=== PATIENT | male | born 1960 | race Caucasian/White ===

== ENCOUNTER → 2018-02-11 | Outpatient (REF) | payer OTHER ==
[2018-02-12 12:08] LABS: ALBUMIN 4.3 GM/DL (3.2-5.2); ALBUMIN/GLOBULIN RATIO 1.43 (1.00-1.93); ALKALINE PHOSPHATASE 62 U/L (45-117); ALT/SGPT 40 U/L (12-78); ANION GAP 6 MEQ/L (8-16); AST/SGOT 27 U/L (7-37); BILIRUBIN,TOTAL 0.4 MG/DL (0.2-1.0); BLOOD UREA NITROGEN 19 MG/DL (7-18); CALCIUM LEVEL 9.3 MG/DL (8.5-10.1); CARBON DIOXIDE LEVEL 29 MEQ/L (21-32); CHLORIDE LEVEL 109 MEQ/L (98-107); CHOLESTEROL LEVEL 152 MG/DL (<200); CHOLESTEROL RISK RATIO 2.666 (<5); CREATININE FOR GFR 0.98 MG/DL (0.70-1.30); GLOMERULAR FILTRATION RATE > 60.0 (>56); GLUCOSE, FASTING 93 MG/DL (70-100); HDL CHOLESTEROL 57 MG/DL (>40); LDL CHOLESTEROL 63.4 MG/DL (<100); NON-HDL-C 95 MG/DL; SODIUM LEVEL 144 MEQ/L (136-145); TOTAL PROTEIN 7.3 GM/DL (6.4-8.2); TRIGLYCERIDES LEVEL 158 MG/DL (<150)
[2018-02-12 12:48] LABS: ESTIMATED AVERAGE GLUCOSE 111 MG/DL (60-110); HEMOGLOBIN A1c 5.5 %
== END ==
LOC: M SFHCCLAY 14:26
DX: R73.01 Impaired fasting glucose (principal); E78.2 Mixed hyperlipidemia
CPT/HCPCS: 80053

== ENCOUNTER → 2018-11-02 | Outpatient (REF) | payer OTHER ==
[2018-11-02 16:42] LABS: ALBUMIN 4.1 GM/DL (3.2-5.2); ALT/SGPT 39 U/L (12-78); BILIRUBIN,TOTAL 0.6 MG/DL (0.2-1.0); BLOOD UREA NITROGEN 20 MG/DL (7-18); CARBON DIOXIDE LEVEL 28 MEQ/L (21-32); CHLORIDE LEVEL 107 MEQ/L (98-107); CHOLESTEROL LEVEL 176 MG/DL (<200); CREATININE FOR GFR 0.95 MG/DL (0.70-1.30); GLOMERULAR FILTRATION RATE > 60.0 (>56); GLUCOSE, FASTING 84 MG/DL (70-100); HDL CHOLESTEROL 55 MG/DL (>40); LDL CHOLESTEROL 100 MG/DL (<100); NON-HDL-C 121 MG/DL; POTASSIUM SERUM 4.8 MEQ/L (3.5-5.1); SODIUM LEVEL 141 MEQ/L (136-145); TOTAL PROTEIN 7.2 GM/DL (6.4-8.2); TRIGLYCERIDES LEVEL 107 MG/DL (<150)
[2018-11-02 16:54] LABS: HEMOGLOBIN A1c 5.6 %
== END ==
LOC: M SFHCCLAY 09:54
PROVIDERS: ATTEND Family Medicine
DX: R73.01 Impaired fasting glucose (principal); E78.2 Mixed hyperlipidemia; Z12.5 Encounter for screening for malignant neoplasm of prostate

== ENCOUNTER 2019-07-14 08:11 | Inpatient (IN) | payer OTHER ==
[~2019-07-14] VITALS: Ht 170.2 cm; Wt 86.5 kg
[2019-07-14] MEDS ORDERED: [UNRECOGNIZED DRUG - OTHER] PO (08:18)
[2019-07-14] MEDS ORDERED: FLON1SPR NARES (08:18)
[2019-07-14 08:44] LABS: HEMATOCRIT 48.5 % (42.0-52.0); HEMOGLOBIN 16.3 g/dl (13.5-17.5); MEAN CORPUSCULAR HEMOGLOBIN 31.4 pg (27.0-33.0); MEAN CORPUSCULAR HGB CONC 33.6 g/dl (32.0-36.5); MEAN CORPUSCULAR VOLUME 93.4 fl (80.0-96.0); PLATELET COUNT, AUTOMATED 277 10^3/uL (150-450); RED BLOOD COUNT 5.19 10^6/uL (4.30-6.10); WHITE BLOOD COUNT 5.3 10^3/uL (4.0-10.0)
[2019-07-14 09:07] LABS: AMPHETAMINES LEVEL URINE NEGATIVE (NEGATIVE); BARBITURATES URINE NEGATIVE (NEGATIVE); BENZODIAZEPINES URINE NEGATIVE (NEGATIVE); CANNABINOIDS URINE NEGATIVE (NEGATIVE); METHADONE URINE NEGATIVE (NEGATIVE); OPIATES URINE NEGATIVE (NEGATIVE); PHENCYCLIDINE URINE NEGATIVE (NEGATIVE)
[2019-07-14 09:24] LABS: ACETAMINOPHEN LEVEL < 2.0 UG/ML (10.0-30.0); ALBUMIN 4.2 GM/DL (3.2-5.2); ALT/SGPT 38 U/L (12-78); BILIRUBIN,DIRECT 0.1 MG/DL (0.0-0.2); BILIRUBIN,TOTAL 0.4 MG/DL (0.2-1.0); BLOOD UREA NITROGEN 18 MG/DL (7-18); CALCIUM LEVEL 9.6 MG/DL (8.5-10.1); CARBON DIOXIDE LEVEL 29 MEQ/L (21-32); CHLORIDE LEVEL 104 MEQ/L (98-107); ETHYL ALCOHOL (ETHANOL) 0.003 % (0.000-0.010); GLOMERULAR FILTRATION RATE > 60.0 (>56); GLUCOSE, FASTING 113 MG/DL (70-100); POTASSIUM SERUM 4.1 MEQ/L (3.5-5.1); SALICYLATE LEVEL < 1.7 MG/DL (5.0-30.0); SODIUM LEVEL 140 MEQ/L (136-145); TOTAL PROTEIN 7.2 GM/DL (6.4-8.2)
[2019-07-14 10:19] LABS: COCAINE METABOLITE URINE NEGATIVE (NEGATIVE)
[2019-07-14] MEDS ORDERED: MOM 30ML SUSPENSION UDC PO PRN (12:30)
[2019-07-14] MEDS ORDERED: ACETAMINOPHEN TAB 650MG DOSE (2X325MG) PO PRN (12:30)
[2019-07-14] MEDS ORDERED: traZODone 50 MG TAB PO PRN (12:30)
[2019-07-14] MEDS ORDERED: MAALOX 30 ML SUSP *UDC PO PRN (12:30)
[2019-07-14] MEDS ORDERED: [UNRECOGNIZED DRUG - OTHER] PO (13:50)
[2019-07-14 14:07] VITALS: BP 157/79
--- NOTE | 2019-07-14 18:12 | HPE ---
DATE OF ADMISSION: 07/14/2019 PRIMARY CARE PROVIDER: Dr. Gaurav Cardenas DO ATTENDING PHYSICIAN: Dr. Yaz Lopez This is a medical evaluation of Sergey Obrien, a 58-year-old, admitted to inpatient mental health unit. His medical history is significant only for some chronic allergies, which are relatively minor, history of prediabetes and borderline hyperlipidemia, just treated through dietary therapy. He has a history of dyspepsia/gastroesophageal reflux disease (GERD). His most recent routine labs were in October, and they were satisfactory. His most recent primary care visit was 05/03/2019 and that note was reviewed as part of this assessment. HOME MEDICATIONS: Some ofdn-ips-mulycra Curcumin nd ginseng. He uses Astelin nasal spray as needed. ALLERGIES: None known. SURGICAL HISTORY: Bilateral carpal tunnel surgery, colonoscopy 2009, 2012, left varicose vein procedure 2013. FAMILY HISTORY: Father of colon cancer at 59, mother at 83 of heart disease. She was hypertensive. SOCIAL HISTORY: Quit smoking many years ago. Low to moderate alcohol intake. 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 REVIEW OF SYSTEMS: No chest pain, palpitations, (dictation cut off). PHYSICAL EXAMINATION: Vital Signs: As listed. Alert, conversant, no distress, answers are appropriate and goal directed. Pupils equal, round, reactive to light. Tympanic membranes (TMs) normal. Pharynx benign. Neck: No masses. Lungs: Clear. Heart: Regular without murmur. Abdomen: Soft, nontender, no masses. No peripheral edema. Exam nonfocal. Normal strength, reflexes, sensation and gait. IMPRESSION: 1. Patient is medically stable. There are no significant medical problems that require ongoing medical care. If any develop, please feel free to notify the hospitalist service. 2. Minimally elevated thyroid-stimulating hormone (TSH). The patient's TSH is minimally elevated at 4.7. This could be repeated as an outpatient. Subclinical hypothyroidism has been shown not to respond to levothyroxine replacement. Until the patient develops amanda hypothyroidism, I would not recommend any treatment. I would let his primary care provider evaluate this further as an outpatient.
[2019-07-14] MEDS: IBUPROFEN 600 MG TAB PO PRN (20:04)
[2019-07-15 06:03] VITALS: BP 130/67
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
[2019-07-15 18:19] VITALS: BP 160/98
[2019-07-15] MEDS: IBUPROFEN 600 MG TAB PO PRN (20:26)
[2019-07-16 06:35] VITALS: BP 138/77
--- NOTE | 2019-07-16 13:40 | MHIPNPDOC ---
[facility] Progress Note Progress Note Inpatient Progress Note Sergey Obrien MRN: N/A Date of : N/A Date of Service: 07/16/2019 History of Present Illness The patient, a 58-year-old man, with a history of some adjustment, presents after reportedly making statements that he had wanted to kill himself after stressful interactions with his as well as difficulty with restructuring his kitchen. He has a history of owning many weapons at home. Interval History The patient is met with today. He has not been tried on any medications, but reports that he is feeling better. He describes talking about his problems and working through the various books is fairly helpful for him. He describes that he was quite happy with the experience. No major behavioral problems. Reports improving mood, interest, energy and fatigue. Review Of Systems General: Denies fever or weight changes Cardiovascular: Denies Chest pain or palpitations GI: Denies Nausea, vomiting, or bowel changes Respiratory: Denies shortness of breath or cough Neuro: Denies dizziness, tremors Derm: Denies any rashes or pruritus : Denies any dysuria or urinary problems MSK: Denies any muscle tightness or stiffness HEENT: Denies any vision changes or headaches Heme/Lymph: Denies any bruising or bleeding Endo: Denies any cold/heat intolerance or water intake changes Psychotherapy None on this visit. Vital Signs Reviewed. Mental Status Examination General: Well dressed with good hygiene Speech: Spontaneous and fluid Thought processes: Linear and logical MSK: Smooth and coordinated gait, no signs of tremors or involuntary orofacial movements Thought content: Future orientated Abstract reasoning, and computation: Intact Description of associations: Intact Description of abnormal or psychotic thoughts: Denies any suicidal or homicidal ideation. Denies any auditory or visual hallucinations. Does not appear to be responding to internal stimuli. Does not appear to be endorsing any bizarre or paranoid ideation. Judgment: fair Insight: fair Orientation: Alert and orientated 3 Cognition: Grossly normal Recent and remote memory: Intact Attention span and concentration: Intact Fund of knowledge: Adequate Mood: "okay" Affect: Euthymic with a full range Diagnoses Unspecified depressive disorder. Assessment and Plan Continue with current treatment plan. Disposition Discharge Thursday per Dr. Matos. Time Spent 20 minutes [id number]. Thursday Vital Signs Vital Signs Date Time Temp Pulse Resp B/P (MAP) Pulse Ox O2 Delivery O2 Flow Rate FiO2 07/16/19 06:35 99.2 60 18 138/77 (97) 07/14/19 14:07 100 07/14/19 08:14 Room Air Current Medications Current Medications Medications (Trade) Dose Ordered Sig/Sandee Route PRN Reason Start Time Stop Time Status Last Admin Dose Admin Acetaminophen (Tylenol Tab) 650 mg Q6HP PRN PO HEADACHE or DISCOMFORT 07/14/19 12:30 Cancel Al Hydrox/Mg Hydrox/Simethicone (Mylanta) 30 ml Q4HP PRN PO HEARTBURN/INDIGESTION 07/14/19 12:30 Home Med (Med Rec Complete!) ASDIRECTED XX 07/14/19 14:00 07/14/19 13:53 DC Ibuprofen (Advil) 600 mg Q6HP PRN PO DISCOMFORT 07/14/19 19:45 07/15/19 20:26 Magnesium Hydroxide (Milk Of Magnesia) 30 ml DAILYPRN PRN PO CONSTIPATION 07/14/19 12:30 Trazodone HCl (Desyrel) 50 mg QHSP PRN PO INSOMNIA 07/14/19 12:30 Allergies Coded Allergies: Dust (Verified Allergy, Unknown, 07/14/19) ENVIROMENTAL (Verified Allergy, Unknown, 07/14/19) CAMILLA FLORES DO Jul 16, 2019 13:40
[2019-07-16 15:53] VITALS: BP 140/85
[2019-07-17 06:39] VITALS: BP 122/69
--- NOTE | 2019-07-17 13:00 | MHIPNPDOC ---
[facility] Progress Note Progress Note Inpatient Progress Note Sergey Obrien MRN: N/A Date of : N/A Date of Service: 07/17/2019 History of Present Illness The patient, a 58-year-old man, with a history of some adjustment, presents after reportedly making statements that he had wanted to kill himself after stressful interactions with his as well as difficulty with restructuring his kitchen. He has a history of owning many weapons at home. Interval History The patient is met with today. He reports he is doing well, that he's helping other patients. Reports that his mood is good. No difficulties with energy, concentration, focus, or motivation. He has been attending groups regularly. Engaged and doing well on the unit. Review Of Systems General: Denies fever or weight changes Cardiovascular: Denies Chest pain or palpitations GI: Denies Nausea, vomiting, or bowel changes Respiratory: Denies shortness of breath or cough Neuro: Denies dizziness, tremors Derm: Denies any rashes or pruritus : Denies any dysuria or urinary problems MSK: Denies any muscle tightness or stiffness HEENT: Denies any vision changes or headaches Heme/Lymph: Denies any bruising or bleeding Endo: Denies any cold/heat intolerance or water intake changes Psychotherapy None on this visit. Vital Signs Reviewed. Mental Status Examination General: Well dressed with good hygiene Speech: Spontaneous and fluid Thought processes: Linear and logical MSK: Smooth and coordinated gait, no signs of tremors or involuntary orofacial movements Thought content: Future orientated Abstract reasoning, and computation: Intact Description of associations: Intact Description of abnormal or psychotic thoughts: Denies any suicidal or homicidal ideation. Denies any auditory or visual hallucinations. Does not appear to be responding to internal stimuli. Does not appear to be endorsing any bizarre or paranoid ideation. Judgment: fair Insight: fair Orientation: Alert and orientated 3 Cognition: Grossly normal Recent and remote memory: Intact Attention span and concentration: Intact Fund of knowledge: Adequate Mood: "okay" Affect: Euthymic with a full range Diagnoses Unspecified depressive disorder. Assessment and Plan Continue with current treatment plan. Disposition Discharge Thursday per Dr. Matos. Time Spent 20 minutes [id number]. Thursday Vital Signs Vital Signs Date Time Temp Pulse Resp B/P (MAP) Pulse Ox O2 Delivery O2 Flow Rate FiO2 07/17/19 06:39 98.3 67 18 122/69 (86) 07/14/19 14:07 100 07/14/19 08:14 Room Air Current Medications Current Medications Medications (Trade) Dose Ordered Sig/Sandee Route PRN Reason Start Time Stop Time Status Last Admin Dose Admin Acetaminophen (Tylenol Tab) 650 mg Q6HP PRN PO HEADACHE or DISCOMFORT 07/14/19 12:30 Cancel Al Hydrox/Mg Hydrox/Simethicone (Mylanta) 30 ml Q4HP PRN PO HEARTBURN/INDIGESTION 07/14/19 12:30 Home Med (Med Rec Complete!) ASDIRECTED XX 07/14/19 14:00 07/14/19 13:53 DC Ibuprofen (Advil) 600 mg Q6HP PRN PO DISCOMFORT 07/14/19 19:45 07/15/19 20:26 Magnesium Hydroxide (Milk Of Magnesia) 30 ml DAILYPRN PRN PO CONSTIPATION 07/14/19 12:30 Trazodone HCl (Desyrel) 50 mg QHSP PRN PO INSOMNIA 07/14/19 12:30 Allergies Coded Allergies: Dust (Verified Allergy, Unknown, 07/14/19) ENVIROMENTAL (Verified Allergy, Unknown, 07/14/19) CAMILLA FLORES DO Jul 17, 2019 13:00
[2019-07-17 15:40] VITALS: BP 135/85
[2019-07-18 06:41] VITALS: BP 127/73
--- NOTE | 2019-07-18 09:19 | MHDSPDOC ---
[facility] Discharge Summary Discharge Summary DATE OF ADMISSION: Jul 14, 2019 at 12:20 pm DATE OF DISCHARGE: Jul 18, 2019 DISCHARGE DIAGNOSES: Adjustment d/o with depression and anxiety REASON FOR ADMISSION:Patient is a 58 -year-old , male, who presented to the ED by police on for SI. Patients called the police because the pa tient was making suicidal statements about "putting a gun in his mouth." The patient states he is here for depression. He states several stressors in his home life. 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 He is overwhelmed with extra works around the house due to a sink leak and expressed frustration with getting little help from his and children. He is alone for the majority of his days and feels like he has lost his children to their cell phones. He expressed marital problems regarding his not helping around the house and hoarding. He reports eh feels judged at synagogue due to his discussing their marital problems with the other synagogue members. He has reportedly been feeling depressed for a year or more. He stated this morning he woke up and laid all of his money and credit cards on the table and told his , "I'm done. I can't take it anymore. You can have all of this, I just want to put a gun in my mouth." He reports he has no history of m ental health diagnosis but was prescribed depression medication years ago by his PCP, but only took it for a couple of months. Patient denies HI/AVH. He stated he had suicidal thoughts at the age of 16 due to growing up in a violent home life as a child but has no history of suicidal attempts. In the ED the patient denied SI at that time. He reported he would not hurt himself but throughout the encounter he did report that things were "bottling up" and if they don't change he will continue to threaten suicide. He reports not sleeping well and being more restless, but does have a good appetite. Although the patient did state he would be safe and not hurt himself if he were to go home, he repeatedly talked about putting a gun in his mouth, being home alone daily, and having guns in the home. Patient seen and reports there are a lot of things that are going on at home. He states, "I got up yesterday morning and with all of the things going on at home, and with is all bottling up, I said I wanted to put a gun in my mouth." He then discusses that he actually went to the gun cabinet and acted as though he was going to grab a gun which he states was enough to get his concerned. She then contacted police. He reports that he wasn't going to do anything with the g un, he was just trying to get some help and no one would listen to him. He says he constantly is asking for help around the house from his and his children and it takes him raising his voice for anyone to actually do something. He says his then feels like he is attacking her but he feels like if she would help the first time he asked he wouldn't need to raise his voice. He then also was upset because she has been sharing their marital problems at synagogue, and this makes him feel judged and uncomfortable. He feels like his kids are so into their cell phones and they never wanna help until he "throws a fit." which he states is him just raising his voice, not breaking things. He is also frustrated with his having a hard time throwing things away, and he really wants to clean things up around the house. He reports she hasn't gotten rid of things for 30 years and she refuses to throw things away that they no longer use. He reports it is all of these stressors bottling up that led to his admission here. He reports that he never felt suicidal or that he would ever hurt himself, but he thought it was the only way to get his family to listen. Today he feels "good, like I'm on vacation." He slept well last night, and his appetite has been good as well. The patient is very chatty and appears to benefit from talking through his stressors. Upset that his will be called to hide his guns for safety purposes b/c "I was planning on taking my kids hunting next weekend." Denies he believes he need an antidepressant but would like therapy outpatient as he find talking about his stressors very beneficial. Encouraged to attend groups while he's here as that are part of his treatment and will be beneficial for him. He denies SI/HI/AVH, he feels safe here. CONSULTANTS INVOLVED: none TREATMENT AND PROGRESS ON THE UNIT :Pt was admitted to [facility], seen for psychiatric assessment and declined to start any psychotropic medications in preference to trying outpatient therapy first as treatment for his mood. He was provided trazodone 500mg qhs prn insomnia. Pt found his medications beneficial and tolerated them well. He attended groups daily during his stay. His symptoms improved with treatment. On day of discharge he denied depression, anxiety, insomnia, SI/HI, hallucinations, delusions. Per d/c digital media planner, called and all of pt's guns removed from his home for safety. He was discharged home with follow-up at [facility]. He felt safe for discharge. DISCHARGE ASSESSMENT::Pt seen and states that his mood is "good" and is looking forward to going home today and being with his and kids. States he slept well last night. He is attending groups and finding them helpful. He denies depression, anxiety, insomnia, SI/HI, hallucinations, delusions. Pt feels safe to be discharged home with his MENTAL STATUS EXAMINATION ON DISCHARGE: General Appearance: well groomed, appears stated age, hospital scrubs/clothing Build: overweight Demeanor: average Eye Contact: average Activity: average Behavior: cooperative Speech: clear, reg/rate,rhythm,volume, non-spontaneous Mood: euthymic, full range Mood "good" Affect: full, appropriate, congruent Thought Process: logical/linear, intact Thought Content (Delusions): denies SI, HI, AVH Thought Content (Other): none reported Thought Content (Aggressive): none reported Perception (Hallucinations): none reported Perception (Other): none reported Cognition (Impairment of): none reported Cognition(Intelligence Est.): average Oriented: Awake, Alert, Oriented times three Insight: good Judgment: good MEDICATIONS ON DISCHARGE: none PLAN/FOLLOWUP ARRANGEMENTS: D/c home with follow-up at [facility]. The amount of time spent in the coordination of care for this patient was approximately 30 minutes. Vital Signs/I&Os Vital Signs Date Time Temp Pulse Resp B/P (MAP) Pulse Ox O2 Delivery O2 Flow Rate FiO2 07/18/19 06:41 98.3 54 12 127/73 (91) 07/14/19 14:07 100 07/14/19 08:14 Room Air Medications Scheduled [[cumin]] Unknown Strength , Unknown Dose PO DAILY, (Reported) Scheduled PRN Fluticasone Propionate (Flonase Allergy Relief) 9.9 Ml [place].susp, 2 SPRAY NARES DAILY PRN for NASAL CONGESTION, #9.9 (Reported) Allergies Coded Allergies: Dust (Verified Allergy, Unknown, 07/14/19) ENVIROMENTAL (Verified Allergy, Unknown, 07/14/19) HEMALATHA CAMP DO Jul 18, 2019 9:19 am
== END 2019-07-18 13:15 | disposition home or self-care (01) | DRG 882 ==
LOC: M ED 08:11 → M ED INP 12:20 → M PSY 13:49
PROVIDERS: ADMIT Psychiatry & Neurology Psychiatry; ATTEND Psychiatry & Neurology Psychiatry
DX: F43.23 Adjustment disorder with mixed anxiety and depressed mood (principal); R45.851 Suicidal ideations; E78.5 Hyperlipidemia, unspecified; K21.9 Gastro-esophageal reflux disease without esophagitis; R73.03 Prediabetes; J30.2 Other seasonal allergic rhinitis; Z91.09 Other allergy status, other than to drugs and biological substances; Z91.49 Other personal history of psychological trauma, not elsewhere classified; Z79.899 Other long term (current) drug therapy; Z63.0 Problems in relationship with spouse or partner; Z87.891 Personal history of nicotine dependence; Z81.1 Family history of alcohol abuse and dependence

== ENCOUNTER → 2019-11-03 | Outpatient (REF) | payer OTHER ==
[~2019-11-03] MED LIST: FLON1SPR NARES; [UNRECOGNIZED DRUG - OTHER] PO; [UNRECOGNIZED DRUG - OTHER] PO
[2019-11-03 16:31] LABS: ALT/SGPT 45 U/L (12-78); BILIRUBIN,TOTAL 0.5 MG/DL (0.2-1.0); BLOOD UREA NITROGEN 20 MG/DL (7-18); CARBON DIOXIDE LEVEL 27 MEQ/L (21-32); CHLORIDE LEVEL 107 MEQ/L (98-107); CHOLESTEROL LEVEL 227 MG/DL (<200); CHOLESTEROL RISK RATIO 3.603 (<5); GLOMERULAR FILTRATION RATE > 60.0 (>49); GLUCOSE, FASTING 90 MG/DL (70-100); HDL CHOLESTEROL 63 MG/DL (>40); LDL CHOLESTEROL 135 MG/DL (<100); NON-HDL-C 164 MG/DL; SODIUM LEVEL 139 MEQ/L (136-145); TOTAL PROTEIN 7.1 GM/DL (6.4-8.2); TRIGLYCERIDES LEVEL 144 MG/DL (<150)
[2019-11-03 16:46] LABS: HEMOGLOBIN A1c 5.8 %
== END ==
LOC: M SFHCCLAY 09:55
PROVIDERS: ATTEND Family Medicine
DX: R73.01 Impaired fasting glucose (principal); E78.2 Mixed hyperlipidemia

== ENCOUNTER → 2019-11-03 | Outpatient (CLI) | payer OTHER ==
--- NOTE | 2019-11-04 01:46 | REP ---
Clinical: Right knee pain Technique: AP, lateral, bilateral oblique and sunrise views. Findings: The osseous structures and joint spaces are intact and essentially age-appropriate. [place] view demonstrates sclerosis and subtle fraying along the anterior patellar margin which may reflect associated tendinopathy. No further significant arthritic changes are appreciated. There is no evidence for acute fracture or dislocation. No definite joint effusion is appreciated. Surrounding soft tissues are unremarkable. Impression: Relatively age-appropriate examination. Patellar tendinopathy cannot be excluded. Electronically Signed by Hilario Ram MD 11/04/2019 01:38 A
== END ==
LOC: M CLY 10:27
PROVIDERS: ATTEND Family Medicine
DX: M25.561 Pain in right knee (principal)

== ENCOUNTER → 2020-09-25 | Outpatient (CLI) | payer SELFPAY | LOC: M LABSMTC 14:18 | PROVIDERS: ATTEND Pediatrics | DX: Z11.59 Encounter for screening for other viral diseases (principal) ==

== ENCOUNTER → 2020-11-26 | Outpatient (REF) | payer OTHER ==
[2020-11-26 12:29] LABS: BASO % 0.8 % (0.0-1.0); EOS # 0.1 10^3/uL (0.0-0.5); EOS % 1.4 % (0.0-3.0); HEMATOCRIT 47.2 % (42.0-52.0); HEMOGLOBIN 15.2 g/dl (13.5-17.5); LYMPH # 1.1 10^3/uL (1.5-5.0); LYMPH % 28.9 % (24.0-44.0); MEAN CORPUSCULAR HEMOGLOBIN 29.9 pg (27.0-33.0); MEAN CORPUSCULAR HGB CONC 32.2 g/dl (32.0-36.5); MEAN CORPUSCULAR VOLUME 92.7 fl (80.0-96.0); MONO # 0.6 10^3/uL (0.0-0.8); MONO % 15.5 % (0.0-5.0); NEUTROPHILS % 53.1 % (36.0-66.0); PLATELET COUNT, AUTOMATED 251 10^3/uL (150-450); RED BLOOD COUNT 5.09 10^6/uL (4.30-6.10); WHITE BLOOD COUNT 3.7 10^3/uL (4.0-10.0)
[2020-11-26 13:49] LABS: ALBUMIN 3.8 GM/DL (3.2-5.2); ALT/SGPT 46 U/L (12-78); BILIRUBIN,TOTAL 0.6 MG/DL (0.2-1.0); BLOOD UREA NITROGEN 21 MG/DL (7-18); CALCIUM LEVEL 9.1 MG/DL (8.8-10.2); CARBON DIOXIDE LEVEL 30 MEQ/L (21-32); CHLORIDE LEVEL 104 MEQ/L (98-107); CHOLESTEROL LEVEL 187 MG/DL (<200); CHOLESTEROL RISK RATIO 2.833 (<5); CREATININE FOR GFR 0.84 MG/DL (0.70-1.30); GLOMERULAR FILTRATION RATE > 60.0 (>49); GLUCOSE, FASTING 116 MG/DL (70-100); HDL CHOLESTEROL 66 MG/DL (>40); LDL CHOLESTEROL 108 MG/DL (<100); NON-HDL-C 121 MG/DL; POTASSIUM SERUM 4.5 MEQ/L (3.5-5.1); SODIUM LEVEL 139 MEQ/L (136-145); TOTAL PROTEIN 6.7 GM/DL (6.4-8.2); TRIGLYCERIDES LEVEL 64 MG/DL (<150)
[2020-11-26 17:05] LABS: HEMOGLOBIN A1c 5.5 %
== END ==
LOC: M SFHCCLAY 07:54
PROVIDERS: ATTEND Family Medicine
DX: R73.01 Impaired fasting glucose (principal); E78.2 Mixed hyperlipidemia

== ENCOUNTER → 2022-02-27 | Outpatient (REF) | payer OTHER ==
[2022-02-27 11:48] LABS: BASO # 0.1 10^3/uL (0.0-0.2); BASO % 0.8 % (0.0-1.0); EOS # 0.1 10^3/uL (0.0-0.5); HEMATOCRIT 48.9 % (42.0-52.0); HEMOGLOBIN 16.4 g/dl (13.5-17.5); LYMPH # 1.1 10^3/uL (1.5-5.0); MEAN CORPUSCULAR HEMOGLOBIN 30.9 pg (27.0-33.0); MEAN CORPUSCULAR HGB CONC 33.5 g/dl (32.0-36.5); MEAN CORPUSCULAR VOLUME 92.3 fl (80.0-96.0); MONO % 16.4 % (2.0-8.0); NEUTROPHILS # 3.8 10^3/uL (1.5-8.5); NEUTROPHILS % 62.5 % (36.0-66.0); PLATELET COUNT, AUTOMATED 269 10^3/uL (150-450)
[2022-02-27 12:08] LABS: ALBUMIN 4.1 GM/DL (3.2-5.2); ALT/SGPT 35 U/L (12-78); BILIRUBIN,TOTAL 0.6 MG/DL (0.2-1.0); BLOOD UREA NITROGEN 23 MG/DL (7-18); CALCIUM LEVEL 9.6 MG/DL (8.8-10.2); CARBON DIOXIDE LEVEL 28 MEQ/L (21-32); CHLORIDE LEVEL 109 MEQ/L (98-107); CHOLESTEROL LEVEL 228 MG/DL (<200); CHOLESTEROL RISK RATIO 3.352 (<5); CREATININE FOR GFR 0.96 MG/DL (0.70-1.30); GLOMERULAR FILTRATION RATE > 60.0 (>49); GLUCOSE, FASTING 153 MG/DL (70-100); HDL CHOLESTEROL 68 MG/DL (>40); LDL CHOLESTEROL 145 MG/DL (<100); NON-HDL-C 160 MG/DL; POTASSIUM SERUM 4.4 MEQ/L (3.5-5.1); SODIUM LEVEL 142 MEQ/L (136-145); TOTAL PROTEIN 7.4 GM/DL (6.4-8.2); TRIGLYCERIDES LEVEL 76 MG/DL (<150)
[2022-02-27 12:55] LABS: HEMOGLOBIN A1c 5.6 %
== END ==
LOC: M SFHCCLAY 07:53
PROVIDERS: ATTEND Family Medicine
DX: R03.0 Elevated blood-pressure reading, without diagnosis of hypertension (principal); R73.01 Impaired fasting glucose; E78.2 Mixed hyperlipidemia

== ENCOUNTER → 2022-08-29 | Outpatient (REF) | payer OTHER ==
[2022-08-29 12:01] LABS: HEMOGLOBIN A1c 5.4 %
[2022-08-29 12:19] LABS: ALBUMIN 4.2 GM/DL (3.2-5.2); ALT/SGPT 41 U/L (12-78); BILIRUBIN,TOTAL 0.7 MG/DL (0.2-1.0); BLOOD UREA NITROGEN 16 MG/DL (7-18); CALCIUM LEVEL 9.5 MG/DL (8.8-10.2); CARBON DIOXIDE LEVEL 30 MEQ/L (21-32); CHLORIDE LEVEL 103 MEQ/L (98-107); CHOLESTEROL LEVEL 244 MG/DL (<200); CHOLESTEROL RISK RATIO 3.128 (<5); CREATININE FOR GFR 0.88 MG/DL (0.70-1.30); GLOMERULAR FILTRATION RATE > 60.0 (>49); GLUCOSE, FASTING 119 MG/DL (70-100); HDL CHOLESTEROL 78 MG/DL (>40); LDL CHOLESTEROL 146 MG/DL (<100); NON-HDL-C 166 MG/DL; POTASSIUM SERUM 4.7 MEQ/L (3.5-5.1); SODIUM LEVEL 137 MEQ/L (136-145); TOTAL PROTEIN 7.5 GM/DL (6.4-8.2); TRIGLYCERIDES LEVEL 102 MG/DL (<150)
== END ==
LOC: M SFHCCLAY 08:23
PROVIDERS: ATTEND Family Medicine
DX: R73.01 Impaired fasting glucose (principal); E78.2 Mixed hyperlipidemia

== ENCOUNTER → 2022-10-02 | Outpatient (CLI) | payer OTHER | LOC: M PLAIMG 12:52 | PROVIDERS: ATTEND Family Medicine | DX: N28.1 Cyst of kidney, acquired (principal); K76.89 Other specified diseases of liver ==

== ENCOUNTER → 2023-08-31 | Outpatient (REF) | payer OTHER ==
[2023-08-31 17:19] LABS: HEMOGLOBIN 15.8 g/dl (13.5-17.5); MEAN CORPUSCULAR HEMOGLOBIN 30.7 pg (27.0-33.0); MEAN CORPUSCULAR HGB CONC 32.9 g/dl (32.0-36.5); MEAN CORPUSCULAR VOLUME 93.4 fl (80.0-96.0); PLATELET COUNT, AUTOMATED 293 10^3/uL (150-450); RED BLOOD COUNT 5.14 10^6/uL (4.30-6.10); WHITE BLOOD COUNT 5.9 10^3/uL (4.0-10.0)
[2023-08-31 17:22] LABS: ALBUMIN 4.1 G/DL (3.2-5.2); ALKALINE PHOSPHATASE 57 U/L (46-116); ALT/SGPT 44 U/L (7.0-40); AST/SGOT 17 U/L (<34); BILIRUBIN,TOTAL 0.5 MG/DL (0.3-1.2); BLOOD UREA NITROGEN 18 MG/DL (9-23); CALCIUM LEVEL 9.7 MG/DL (8.3-10.6); CARBON DIOXIDE LEVEL 30 MMOL/L (20-31); CHLORIDE LEVEL 104 MMOL/L (98-107); CHOLESTEROL LEVEL 230 MG/DL (<200); CHOLESTEROL RISK RATIO 3.42 (<5); CREATININE FOR GFR 0.82 MG/DL (0.70-1.30); GLOMERULAR FILTRATION RATE > 60.0 (>49); GLUCOSE, FASTING 93 MG/DL (74-106); HDL CHOLESTEROL 67.2 MG/DL (>40); LDL CHOLESTEROL 138.4 MG/DL (<100); NON-HDL-C 162.8 MG/DL; POTASSIUM SERUM 4.7 MMOL/L (3.5-5.1); SODIUM LEVEL 140 MMOL/L (136-145); TOTAL PROTEIN 6.8 G/DL (5.7-8.2); TRIGLYCERIDES LEVEL 122 MG/DL (<150)
[2023-08-31 18:12] LABS: HEMOGLOBIN A1c 5.3 % (4.0-6.0)
== END ==
LOC: M SFHCCLAY 09:59
PROVIDERS: ATTEND Family Medicine
DX: R03.0 Elevated blood-pressure reading, without diagnosis of hypertension (principal); R73.01 Impaired fasting glucose; E78.2 Mixed hyperlipidemia

== ENCOUNTER → 2023-10-03 | Outpatient (CLI) | payer OTHER | LOC: M RAD 11:07 | PROVIDERS: ATTEND Family Medicine | DX: M54.16 Radiculopathy, lumbar region (principal); M79.605 Pain in left leg; M51.36 Other intervertebral disc degeneration, lumbar region; M51.37 Other intervertebral disc degeneration, lumbosacral region ==

== ENCOUNTER → 2024-04-26 | Outpatient (CLI) | payer OTHER | LOC: M EKG 13:25 | PROVIDERS: ATTEND Orthopaedic Surgery | DX: Z01.810 Encounter for preprocedural cardiovascular examination (principal) ==

== ENCOUNTER → 2024-12-27 | Outpatient (REF) | payer OTHER ==
[2024-12-27 17:45] LABS: THYROID STIMULATING HORMONE 5.147 uIU/ML (0.55-4.78)
[2024-12-27 17:46] LABS: FREE T4 1.14 NG/DL (0.89-1.76)
[2024-12-27 17:47] LABS: ALBUMIN 3.9 G/DL (3.2-5.2); ALKALINE PHOSPHATASE 60 U/L (40-129); ALT/SGPT 44 U/L (7.0-40); AST/SGOT 16 U/L (<34); BILIRUBIN,TOTAL 0.5 MG/DL (0.3-1.2); BLOOD UREA NITROGEN 25 MG/DL (9-23); CALCIUM LEVEL 9.5 MG/DL (8.3-10.6); CARBON DIOXIDE LEVEL 28 MMOL/L (20-31); CHLORIDE LEVEL 106 MMOL/L (98-107); CREATININE FOR GFR 0.95 MG/DL (0.70-1.30); GLOMERULAR FILTRATION RATE > 60.0 (>49); GLUCOSE, FASTING 95 MG/DL (74-106); POTASSIUM SERUM 4.6 MMOL/L (3.5-5.1); SODIUM LEVEL 142 MMOL/L (136-145); TOTAL PROTEIN 6.9 G/DL (5.7-8.2)
[2024-12-27 17:50] LABS: TOTAL T3 102.9 NG/DL (60.0-181.0)
== END ==
LOC: M SFHCCLAY 08:30
PROVIDERS: ATTEND Family Medicine
DX: I10 Essential (primary) hypertension (principal); R79.89 Other specified abnormal findings of blood chemistry

== ENCOUNTER → 2025-05-16 | Outpatient (REF) | payer OTHER ==
[2025-05-16 18:57] LABS: C REACTIVE PROTEIN QUANTITATIV < 0.50 MG/DL (<1.0)
[2025-05-16 18:58] LABS: ALT/SGPT 48 U/L (7.0-40); AST/SGOT 25 U/L (<34); CALCIUM LEVEL 9.3 MG/DL (8.3-10.6); CARBON DIOXIDE LEVEL 25 MMOL/L (20-31); CHLORIDE LEVEL 104 MMOL/L (98-107); CREATININE FOR GFR 0.85 MG/DL (0.70-1.30); GLOMERULAR FILTRATION RATE > 90.0 (>49); POTASSIUM SERUM 4.4 MMOL/L (3.5-5.1); SODIUM LEVEL 140 MMOL/L (136-145)
[2025-05-16 18:59] LABS: BASO # 0.0 10^3/uL (0.0-0.2); BASO % 0.7 % (0.0-1.0); EOS # 0.1 10^3/uL (0.0-0.5); EOS % 1.6 % (0.0-3.0); LYMPH # 1.6 10^3/uL (1.5-5.0); LYMPH % 27.3 % (24.0-44.0); MONO # 0.5 10^3/uL (0.0-0.8); MONO % 9.3 % (2.0-8.0); NEUTROPHILS # 3.5 10^3/uL (1.5-8.5); NEUTROPHILS % 60.9 % (36.0-66.0); PLATELET COUNT, AUTOMATED 284 10^3/uL (150-450)
[2025-05-16 19:24] LABS: ERYTHROCYTE SEDIMENTATION RATE 8 mm/hr (0-20)
== END ==
LOC: M SFHCCLAY 13:54
PROVIDERS: ATTEND Family Medicine
DX: M25.511 Pain in right shoulder (principal); M25.512 Pain in left shoulder

== ENCOUNTER → 2025-05-16 | Outpatient (CLI) | payer OTHER | LOC: M CLY 14:01 | PROVIDERS: ATTEND Family Medicine | DX: M25.511 Pain in right shoulder (principal); M25.512 Pain in left shoulder; M16.0 Bilateral primary osteoarthritis of hip ==

== ENCOUNTER → 2025-08-29 | Outpatient (CLI) | payer OTHER | LOC: M PLAIMG 14:19 | PROVIDERS: ATTEND Family Medicine | DX: M25.511 Pain in right shoulder (principal); M19.012 Primary osteoarthritis, left shoulder; M67.814 Other specified disorders of tendon, left shoulder ==

== ENCOUNTER → 2025-09-22 | Outpatient (CLI) | payer OTHER | LOC: M PLARAD 14:55 | PROVIDERS: ATTEND Family Medicine | DX: M25.511 Pain in right shoulder (principal); M25.512 Pain in left shoulder ==